=== PATIENT | male | born 1955 | race Caucasian/White ===

== ENCOUNTER 2025-02-15 20:19 | Inpatient (IN) | payer BC, MEDICARE ==
[~2025-02-15] VITALS: Ht 188 cm; Wt 82.5 kg
--- NOTE | 2025-02-15 20:38 | Physician Documentation ---
History of Present Illness ~ Chief Complaint: Chest Pain Stated Complaint: NSTEMI Time Seen by MD: 20:38 OK to notify your PCP?: Yes Source: patient, RN/MD, EMS, RN notes reviewed, EMS notes reviewed Mode of Arrival: EMS Exam Limitations: no limitations HPI BED 6 This patient is a 69-year-old male transferred via EMS from [facility] for NSTEMI. Patient initially presented to [facility] for an injury to his chest. He states that about 35-40 minutes prior to his arrival at [facility], he had been playing basketball when he was accidentally struck in the chest by another player's elbow. Patient states that after the initial injury he was having some shortness of breath, however it had resolved by the time he was seen. During ED course at [facility], patient continued to complain of severe chest pain. Labs were drawn and found that patient had a troponin of 0.26. EKG indicated LBBB otherwise normal. CT chest was negative. Patient denies any cardiac history. He denies any chest pain prior to being hit during the basketball game. Patient was given a 4000 cc bolus of heparin at 4:04 p.m. and then subsequently started on a heparin drip at a rate of 20 mL/hr. The patient was also treated with morphine and 324 ASA. Patient denies any other associated symptoms at this time. Patient denies any other alleviating or exacerbating factors. He states he is otherwise healthy, no medical problems, does not smoke/drink, and is regularly active. Medication Reconciliation Allergies: Coded Allergies: No Known Allergies (Unverified , 02/15/25) Miscellaneous Medications Home Med List (No Home Medications), (Reported) Past Medical History Past Medical History: No Pertinent History Past Surgical History: no surgical history Smoking Status: Never smoker Alcohol Use: None Drug Use: none Review of Systems All Other Systems at this time: Reviewed and Negative Cardiovascular: Reports: chest pain Physical Exam Vital Signs: RN Vital Signs have been reviewed: Yes, Temperature: 98.5, Source: Oral, Heart Rate: 82, Respiratory Rate: 14, BP: 135/86, Pulse Oximetry: 98, Weight: 82.500 Oxygen Flow Rate: 0 Physical Exam General: The patient is well developed, well nourished, nontoxic appearing and is in no acute distress. Skin: [place], warm and dry with no rashes. HEENT: Head was normocephalic and atraumatic. Eyes - pupils equal, round, reactive to light and accommodation. Extraocular movements were intact. Conjunctivae were nonicteric. Ears - bilateral tympanic membranes were normal. The mouth and oropharynx were clear with moist mucous membranes. There were no pharyngeal exudates or erythema. Neck: Supple and nontender. There was no jugular venous distention, lymphadenopathy, thyromegaly or masses. Chest: Clear to auscultation bilaterally without wheezes, rales or rhonchi. No accessory muscle use. No dullness to percussion. Heart: Rate regular and rhythmic. S1, S2. No murmurs. Palpation of the chest wall was normal. No rubs or thrills. Abdomen: Soft, nontender and nondistended. Positive bowel sounds. No guarding or rebound. No hepatosplenomegaly or palpable masses. Extremities: No cyanosis, clubbing or edema. The patient moves all extremities. Pulses were equal and symmetric. Neurologic: Cranial nerves II-XII were intact. Sensation was intact to light touch throughout. Motor strength was 5/5 in all four extremities. Deep tendon reflexes were intact in both upper and lower extremities. Psychologic: The patient was oriented to person, place and time. The patient demonstrated appropriate judgement and insight. Progress Progress Note 2045: Paged Hospitalist 2105: Discussed case with hospitalist who agrees to evaluate patient for admission. Results/Orders Reviewed/noted all lab results: Yes Results/Orders Orders - FERNANDO SARAVIA MD Monitor (02/15/25 20:39) Oxygen (02/15/25 20:39) Saline Lock (02/15/25 20:39) Page Hospitalist (02/15/25 20:46) Fill Out Med Reconciliation (02/15/25 20:46) Completed Orders - FERNANDO SARAVIA MD Cbc/Diff (02/15/25 20:39) MG (02/15/25 20:39) Pt Inr (02/15/25 20:39) PTT (02/15/25 20:39) PBNP (02/15/25 20:39) Nitroglycerin 0.2mg/Hour Patch (Nitro-Du (02/15/25 20:40) BMP (02/15/25 20:39) Hs Troponin I W Calculations (02/15/25 20:39) Cardiac Ptt (02/16/25 03:16) Vital Signs 02/15/25 02/15/25 02/15/25 20:24 21:00 21:02 Temp 98.5 Pulse 82 82 Resp 14 17 13 B/P (MAP) 135/86 145/96 (112) Pulse Ox 98 93 O2 Flow Rate 0 Laboratory Tests Test 02/15/25 20:47 White Blood Count 12.3 H Red Blood Count 5.45 Hemoglobin 15.7 Hematocrit 45.4 Mean Corpuscular Volume 83.3 Mean Corpuscular Hemoglobin 28.8 Mean Corpuscular Hemoglobin Concent 34.6 Red Cell Distribution Width 13.1 Platelet Count 197 Mean Platelet Volume 8.4 Neutrophils (%) (Auto) 90.0 H Lymphocytes (%) (Auto) 6.8 L Monocytes (%) (Auto) 3.1 Eosinophils (%) (Auto) 0 Basophils (%) (Auto) 0.1 Neutrophils # (Auto) 11.0 H Lymphocytes # (Auto) 0.8 L Monocytes # (Auto) 0.4 Eosinophils # (Auto) 0.0 Basophils # (Auto) 0.0 CBC Comment Prothrombin Time 11.9 INR International Normalized Ratio 1.2 Activated Partial Thromboplast Time 64 H Coagulation Comments Sodium Level 143 Potassium Level 4.0 Chloride Level 106 Carbon Dioxide Level 24.8 Anion Gap 12 Blood Urea Nitrogen 16 Creatinine 1.30 H Estimated GFR/1.73 m2 55 BUN/Creatinine Ratio 12.3 Glucose Level 133 H Calcium Level 8.3 L Magnesium Level 1.9 Troponin I High Sensitivity 9618 *H Pro-B-Type Natriuretic Peptide 782 H Albumin 3.8 Chemistry Comments Re-Evaluation Re-Evaluation : Re-Evaluation: Unchanged Progress Patient was seen and examined. Patient was given reassurance. Patient was transferred for non ST-elevation PR. patient was playing basketball got hit in the chest continued to have pain never seemed to recover. He received three troponins at [facility] new left bundle branch block placed on a heparin drip and transferred to our facility for further evaluation and care. Patient was considered a non STEMI after consultation with the metalizer field operation but no beds were available so the patient was transferred to our facility. Laboratory work was repeated. The patient's CBC was reassuring with a WBC of 12.3 normal hemoglobin hematocrit of 15.7 and 45.4 with 90 neutrophils. Chemistry showed dramatic elevation in troponin of 9618. Subsequent troponin was [address]. Patient's chemistry was within normal limits. Patient will be taken to the drop crew laborer in the morning. Cardiology will be consulted as well. Continuous president commercial bank interpretation shows normal sinus rhythm heart rate 80s, no ectopy, normal, my interpretation. Pulse oximetry monitor interpretation shows normal oxygenation at 98% room air, normal, my interpretation. EKG/XRAY/CT/US/VASC/MRI EKG : Additional Comment 2026: EDMD Dr. Saravia interpreted the EKG to show normal sinus rhythm at a rate of 82bpm, LBBB, QTC of 533ms, and poor R wave progression. Heart Score: Heart Score Response (Comments) Value History Moderate Suspicious [address]-Deviation 2 Age >65 2 Risk Factors No known risk factors 0 Troponin >3 x's Normal limit 2 Total 7 Medical Decision Making Additional info obtained from: old records Differential Dx:Considerations: Include: angina, aortic dissection, chest wall pain, CHF, costochondritis, esophageal reflux/spasm, myocardial infarction, pericarditis, pleuritis, pulmonary embolus, other Departure Time of Disposition: 21:06 Disposition: 09 ADMITTED INPATIENT Admitted to Inpatient Unit: yes, to hospitalist Admission Level of Care: PCU with Tele Impression: Primary Impression: NSTEMI (non-ST elevated myocardial infarction) Condition: Guarded Referrals: NO PRIMARY CARE PROVIDER (PCP) Education Educated: Patient Educated regarding: diagnosis, treatment, prognosis, need for follow up, other Critical Care Note Total Time (mins): 30 Critical Care Note The very real possibility of a deterioration of this patient's condition requi red the highest level of my preparedness for sudden, emergent intervention. I provided critical care services, which included medication orders, frequent reevaluations of the patient's condition and response to treatment, ordering and reviewing test results, and discussing the case with various consultants. Excludes time spent performing separately billable procedures. The critical care time associated with the care of the patient was 30 minutes. Signature Scribe Signature: Scribed for Fernando Saravia MD by Nica Mccauley. 02/15/25 Attestation: The note accurately reflects work and decisions made by me.Fernando Saravia MD 02/15/25 20:38 FERNANDO SARAVIA MD Feb 15, 2025 20:38
[2025-02-15 21:12] LABS: MEAN PLATELET VOLUME 8.4 FL (7.4-10.4); RED CELL DISTRIBUTION WIDTH 13.1 % (11.5-14.5)
[2025-02-15] MEDS: heparin 25,000 UNIT/250ml bag 250 ML IV PRN (21:16)
[2025-02-15 21:23] LABS: APTT 64 SECONDS (22-32); INR 1.2 INR
[2025-02-15 21:31] LABS: CREATININE 1.30 MG/DL (0.60-1.10); PRO BRAIN NATRIURETIC PEPTIDE 782 PG/ML (0-125); TOTAL CARBON DIOXIDE 24.8 MMOL/L (24-32); eCRCL 64 ML/MIN; eGFR 55 ML/MIN
[2025-02-15] MEDS ORDERED: potassium Cl 20 mEq SR tablet PO PRN ×2 (21:50)
[2025-02-15] MEDS ORDERED: magnesium Cl slow-release 64mg tablet PO PRN (21:50)
[2025-02-15] MEDS ORDERED: potassium Cl 40MEQ/1/2NS 520ml 520 ML IV PRN (21:50)
[2025-02-15] MEDS ORDERED: magnesium hydroxide 30ml (MOM) UD suspension PO PRN (21:50)
[2025-02-15] MEDS ORDERED: mag hydrox/Alum hydrox/simeth 30ml oral suspension PO PRN (21:50)
[2025-02-15] MEDS: normal saline 1000ml 1,000 ML IV SCH (21:50)
[2025-02-15] MEDS ORDERED: magnesium sulf-water 2g/50mL 50 ML IV PRN (21:50)
[2025-02-15] MEDS ORDERED: magnesium sulf-water 4G/100mL 100 ML IV PRN (21:50)
[2025-02-15] MEDS: MESSAGE TO NURSING IV ONE (22:15)
[2025-02-15] MEDS ORDERED: NO HOME MEDS (22:32)
[2025-02-15 23:20] VITALS: BP 137/91; PULSE 89; RESP 18; TEMP 97.7; O2SAT 97
[2025-02-16] VITALS (14 sets, daily range): BP systolic 95–129; BP diastolic 54–94; PULSE 58–85; RESP 14–20; TEMP 97.2–98.6; O2SAT 92–99
--- NOTE | 2025-02-16 00:04 | HISTORY AND PHYSICAL-Residence ---
History & Physical Providers to CC Resident Creating Document: JASWINDER ARCOS RES ~ History of Present Illness Primary Medical Doctor: Parish Smith MD Reason for Admit\Complaint: Chest pain History of Present Illness This 69-year-old male was transferred from [facility] on heparin drip for further management of NSTEMI. He started playing basketball after nearly 10 months and got hit by another player's elbow. Continued to play for an hour or hour and a half after the injury. Took a shower at the gym and then started feeling clammy. Also had chest pain in the mid lower chest where he was hit. States the pain is 3/10. Also complained of tingling in his in the bilateral forearms and hands but no longer has these symptoms. Had belching as well. Went to [facility] where the troponins went up from less than 0.01 two 0.26 in about 4 hours. EKG showed new onset LBBB and so Dr. Fowler - voltage regulator assembler in [facility] was consulted. Per the voltage regulator assembler, suspicion is that it is noncardiac and it is reasonable to consider a catheterization. EKG done here showed LBBB but Carlos modified Sgarbossa criteria give two points - no concordant ST-elevation of more than 1 mm (close to 1 mm in V6), no Rowe content ST-depression, excessive discordant elevation of more than or equal to 25% of S wave in leads V2 and V4. Troponins here in this hospital trended [place] 9618 [place] 70027. He does not complain any worsening chest pain in his dull achy pain at the site of injury. Denies any other complaints. Denies any dizziness, fall or losing consciousness after the injury. He received aspirin 324 mg and morphine at [facility]. States that morphine helped him with the pain in the pain gets worse with deep inspiration. Denies any nausea, vomiting. Denies any past cardiac history. States that he occasionally has difficulty drinking fluids and swallow solids 4-5 times in an year. Never got an EGD or esophageal dilatation done. Has a history of hay fever and asthma in childhood. Chest CT done at the outside hospital did not show any acute abnormalities Allergies: Coded Allergies: No Known Allergies (Unverified , 02/15/25) Home Medications Home Medications Active Reported No Home Medications (Home Med List) Each Past Medical History Past Medical History Right foot 10 done injury, kneecap injury, right wrist injury Past Surgical History Surgical History Comment Two nose surgeries Past Social History Social History Comment Denies smoking tobacco, drinking alcohol or abusing any other recreational drugs Alcohol Use: None Drug Use: None ROS ROS Constitutional: No fever, chills, dizziness, weakness, weight gain or loss Eyes: No pain, erythema, discharge, blurring of vision ENT: No sore throat, epistaxis, tinnitus Cardiovascular: Chest pain present. No chest pressure, chest discomfort, palpitations, syncope, lower extremity edema, paroxysmal nocturnal dyspnea Respiratory: No shortness of breath, cough, hemoptysis Gastrointestinal: Normal appetite. No nausea, vomiting, diarrhea, constipation, hematemesis, abdominal pain, bloating, melena or fresh blood Genitourinary: No frequency, urgency, nocturia, hematuria or dysuria Musculoskeletal: No arthralgias or myalgias Integumentary: No change in skin, hair, nails. No swelling, bruising, abrasions Neurologic: No headache, neck pain, numbness or tingling of the extremities, weakness Psychiatric: No delusions, depression, loss of interest in normal activity or change in sleep pattern, hallucinations, suicidal ideations Endocrine: No fatigue, weakness, polydipsia, polyuria, change in appetite, heat or cold intolerance, sweating, dry skin Hematological: No bleeding, petechiae, bruising Allergies: No asthma or urticaria Cardiovascular: Reports: chest pain Exam Vitals: Vital Signs Date Time Temp Pulse Resp B/P (MAP) Pulse Ox O2 Delivery O2 Flow Rate FiO2 02/15/25 22:00 82 23 140/97 (111) 98 02/15/25 20:24 98.5 0 General: Alert and oriented x4 HEENT: Normocephalic and atraumatic. Pupils equal round reactive to light and accommodation. Extraocular movements intact. Oral and nasal mucosa moist Neck: Trachea is in midline. No masses or JVD Chest: Bilateral normal breath sounds. No crackles, rhonchi or wheezes. Tenderness to pressure in mid lower chest. No open injuries or contusion Cardiovascular: Regular rate and rhythm. S1-S2 normal. No rubs or murmurs Abdomen: Soft, nontender nondistended. Bowel sounds present Extremities: No cyanosis, clubbing or edema Central Nervous System: No gross sensory or motor deficits. CN II to XII intact Skin: Warm and dry Diagnostic Data Last Recorded Lab Results: 02/15/[id number] Diagnostic Data: Laboratory Tests Test 02/15/25 20:47 Prothrombin Time 11.9 SECONDS (9.0-12.0) INR International Normalized Ratio 1.2 INR Activated Partial Thromboplast Time 64 SECONDS (22-32) H Coagulation Comments Advance Care Planning Advanced Care plannin - 30 Minutes Additional Plan NSTEMI and new onset LBBB Troponins continue to trend drop from 9618 to 20039 Continue morphine for pain Received aspirin 324 mg chew tablet at the outside hospital At the outside hospital, EKG showed new onset LBBB and so Dr. Fowler - voltage regulator assembler in [facility] was consulted. Per the voltage regulator assembler, suspicion is that it is noncardiac and it is reasonable to consider a catheterization. EKG done here showed LBBB but Carlos modified Sgarbossa criteria give two points - no concordant ST-elevation of more than 1 mm (close to 1 mm in V6), no Rowe content ST-depression, excessive discordant elevation of more than or equal to 25% of S wave in leads V2 and V4. Repeat EKG after 4 hours did not show any new changes On heparin drip. Received 4000 IV bolus of heparin at the outside hospital Did not start any beta jose daniel due to underlying LBBB. Regular rate. Hemodynamically stable Continue aspirin 81 mg p.o. daily, Lipitor 80 mg p.o. daily LDL 153. HbA1c 5.2 Pending UA and urine tox Chest CT done at the outside hospital did not show any acute abnormalities Echocardiogram ordered Consult Cardiology in a.m. NPO after midnight Elevated white count No source of infection Chest CT done at the outside hospital did not show any acute abnormalities Pending UA Started Rocephin 2 g IV daily and on normal saline at 100 cc/hour Blood cultures ordered Possible acute kidney injury Creatinine 1.3. BUN normal-16 EGFR 55 Continue IV fluids DVT prophylaxis: Heparin drip Diet: NPO after midnight Jaswinder Arcos MD Internal Medicine Resident, PGY 2 I have discussed the pt with the resident Pt has a rising troponin will continue treatment as outlined agree with the plan as documented Date of Service: Feb 16, 2025 Billing Provider: JIM BISHOP MD, MANOJNA RES Feb 16, 2025 00:04 JIM BISHOP MD Feb 16, 2025 03:25
--- NOTE | 2025-02-16 00:34 | ELECTROCARDIOGRAPH REPORT ---
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 KIMBERLY Fierro Measurements Intervals [place] Rate: 75 P: 69 AL: 183 QRS: -19 QRSD: 148 T: 75 QT: 474 QTc: 530 Interpretive Statements Sinus rhythm Left bundle branch block Electronically Signed On 02-16-2025 17:56:[address] KIMBERLY Fierro Please click the below link to view image of tracing.
[2025-02-16 01:24] LABS: MEAN PLATELET VOLUME 8.2 FL (7.4-10.4); RED CELL DISTRIBUTION WIDTH 13.1 % (11.5-14.5)
[2025-02-16 01:34] LABS: APTT 31 SECONDS (22-32); INR 1.1 INR
[2025-02-16 01:37] LABS: CHOL/HDL RATIO 3.5 (0.00-4.99); CREATININE 1.29 MG/DL (0.60-1.10); LDL CHOLESTEROL 153 MG/DL (50-100); PHOSPHORUS 3.3 MG/DL (2.3-4.5); TOTAL CARBON DIOXIDE 25.9 MMOL/L (24-32); eCRCL 65 ML/MIN; eGFR 56 ML/MIN
[2025-02-16] MEDS ORDERED: heparin 10,000 units/1 ML INJ IV PRN (02:10)
[2025-02-16] MEDS ORDERED: heparin 25,000 UNIT/250ml bag 250 ML IV PRN (02:10)
[2025-02-16 02:49] LABS: LEUKOCYTE ESTERASE ,URINE NEGATIVE (Neg); NITRITES, URINE NEGATIVE (Neg); OCCULT BLOOD,URINE TRACE-INTACT (Neg)
[2025-02-16 02:55] LABS: URINE AMPHETAMINE SCREEN NEGATIVE (Neg); URINE BARBITUATE SCREEN NEGATIVE (Neg); URINE BENZODIAZEPINES SCREEN NEGATIVE (Neg); URINE CANNABINOID SCREEN NEGATIVE (Neg); URINE COCAINE SCREEN NEGATIVE (Neg); URINE METHADONE SCREEN NEGATIVE (Neg); URINE OPIATE SCREEN POSITIVE (Neg); URINE PHENCYCLIDINE SCREEN NEGATIVE (Neg)
[2025-02-16 02:57] LABS: UA COLLECTION TYPE CLN CATCH MIDSTREAM
[2025-02-16 03:00] LABS: MUCUS STRANDS MODERATE /LPF (Neg); SQUAMOUS EPITHELIAL CELL,UR NONE SEEN /LPF (FEW)
[2025-02-16] MEDS: heparin 10,000 units/1 ML INJ IV PRN (03:21)
[2025-02-16] MEDS: CefTRIAXone 2gm/D5W 50ml BAG 50 ML IV SCH (03:22)
[2025-02-16] MEDS: MESSAGE TO NURSING IV ONE ×3 (03:36→19:12)
--- NOTE | 2025-02-16 04:43 | ELECTROCARDIOGRAPH REPORT ---
[facility] Test Date: 2025-02-15 Test Time: 20:27:29 Pat Name: REYES FELIPE Department: EMERGENCY ROOM Room: [place] [address] A Gender: M Receptionist Scheduler: : 1955 Requested By: DEPARTMENT EMERGENCY Order Number: [id number] Reading MD: Dr. Joshua Mahan Measurements Intervals [place] Rate: 82 P: 76 CO: 175 QRS: 31 QRSD: 149 T: 102 QT: 456 QTc: 533 Interpretive Statements Sinus rhythm Left bundle branch block Electronically Signed On 02-17-2025 10:24:[address] Joshua Mahan Please click the below link to view image of tracing.
--- NOTE | 2025-02-16 06:54 | RADIOLOGY REPORT ---
EXAM: XR Chest, 1 View CLINICAL INDICATION: Pain TECHNIQUE: Frontal view of the chest. COMPARISON: No relevant prior studies available. FINDINGS: LUNGS AND PLEURAL SPACES: Unremarkable. No consolidation. No pneumothorax. HEART: Unremarkable. No cardiomegaly. MEDIASTINUM: Unremarkable. Normal mediastinal contour. BONES/JOINTS: Unremarkable. No acute fracture. IMPRESSION: No acute cardiopulmonary process.
--- NOTE | 2025-02-16 08:41 | ELECTROCARDIOGRAPH REPORT ---
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 KIMBERLY Fierro Measurements Intervals [place] Rate: 73 P: 60 MI: 177 QRS: -34 QRSD: 149 T: 70 QT: 486 QTc: 536 Interpretive Statements Sinus rhythm Ventricular premature complex Left bundle branch block Electronically Signed On 02-16-2025 17:57:[address] KIMBERLY Fierro Please click the below link to view image of tracing.
[2025-02-16] MEDS: aspirin 81mg, enteric-coated 1 TAB TABLET.DR PO SCH (09:12)
[2025-02-16 09:15] LABS: OSMOLALITY 290.0 MOSM/K (280-300)
[2025-02-16] MEDS: K and/or MAG REPLACEMENT MC SCH (11:51)
[2025-02-16] MEDS: ondansetron/PF 4mg/2ml inj IV PRN (13:06)
--- NOTE | 2025-02-16 13:37 | PROGRESS NOTE- Residence ---
Progress Note - Resident Providers to CC Resident Creating Document: WELLINGTON CASTILLO, RES ~ Antibiotic Timeout Antibiotic Ordered?: Yes Subjective The patient has been evaluated at bedside. The patient reports that his chest pain improves with nitroglycerin. Also states some tenderness in the level of the chest due to previous trauma while he was playing basketball. Objective Vital Signs Date Time Temp Pulse Resp B/P (MAP) Pulse Ox O2 Delivery O2 Flow Rate FiO2 02/16/25 10:45 Room Air 02/16/25 07:00 98.6 77 15 109/71 (84) 95 2.0 Physical exam: General: Well alert, well oriented, not confused, not agitated, not in acute distress, well cooperated during the physical. HEENT: Conjunctive are pink, sclerae clear, no icterus, pupil is equal in both sides, reactive to light, no ear discharge, no pharyngeal erythema or an edema. Neck: Supple, no JVD, no lymphadenopathy and thyromegaly. Chest: Equal air entry on both lungs, no additional sounds no rhonchi no wheezing at the moment. Tenderness in midsternal area, as per patient from trauma yesterday while he was playing basketball. Cardiovascular: S1-S2 regular sinus rhythm and, regular rate, no gallops, no rubs, no murmurs Abdomen: No visible peristalsis, Bowel sounds present on auscultation, soft, nontender, no guarding, no rigidity Extremities: No obvious deformities, no pitting edema bilaterally, capillary refill intact, peripheral pulsations are intact on both sides Central Nervous System: No focal neurological deficits, no motor or sensory weakness in all 4 extremities, could move all 4 extremities, 2+ deep tendon reflexes, negative Babinski. Musculoskeletal: No joint swelling, deformities, inflammations, and no scoliosis and back tenderness Skin: Warm and dry. Result Diagram: 02/16/25 0104 02/16/25 0104 Coagulation Studies Laboratory Tests Test 02/16/25 01:04 02/16/25 09:15 Prothrombin Time 11.0 SECONDS (9.0-12.0) INR International Normalized Ratio 1.1 INR Activated Partial Thromboplast Time 31 SECONDS (22-32) APTT (Heparin Protocol) 46 SECONDS (45-60) Coagulation Comments Assessment Assessment 69-year-old male patient came to the hospital transferred from [facility] due to NSTEMI. Plan Plan NSTEMI: New onset LBBB: The patient came to the hospital with chief complaint of chest pain. Troponins continue to [place] drop [place] 9618 to 53945 Continue morphine for pain Received aspirin 324 mg chew tablet at the outside hospital At the outside hospital, EKG showed new onset LBBB and so Dr. Fowler - nuclear equipment test engineer in [facility] was consulted. Per the nuclear equipment test engineer, suspicion is that it is noncardiac and it is reasonable to consider a catheterization. EKG done here showed LBBB but Carlos modified Sgarbossa criteria give two points - no concordant ST-elevation of more than 1 mm (close to 1 mm in V6), no Rowe content ST-depression, excessive discordant elevation of more than or equal to 25% of S wave in leads V2 and V4. Repeat EKG after 4 hours did not show any new changes On heparin drip. Received 4000 IV bolus of heparin at the outside hospital Did not start any beta jose daniel due to underlying LBBB. Regular rate. Hemodynamically stable Continue aspirin 81 mg p.o. daily, Lipitor 80 mg p.o. daily LDL 153. HbA1c 5.2 Pending UA and urine tox Chest CT done at the outside hospital did not show any acute abnormalities Echocardiogram ordered Consult Cardiology in a.m. NPO after midnight. 02/16/2025: Troponin levels trending up. Last troponin levels 32512. Echocardiogram: LVEF 40-45%. Mild septal hypertrophy. Multisegmental wall motion abnormalities. RVSP 34 mmHg. Grief Counsellor: Dr. Rowe consulted who states that the patient will be transferred to clinical lab scientist this afternoon. Continue heparin drip. On aspirin 81 mg daily. Atorvastatin 80 mg daily. Nitroglycerin 0.4 mg q.5h minutes PRN sublingual. Elevated white count likely reactive: No source of infection Chest CT done at the outside hospital did not show any acute abnormalities Pending UA Started Rocephin 2 g IV daily and on normal saline at 100 cc/hour Blood cultures ordered. 02/16/2025: CRP: 0.83. Continue on empiric antibiotic ceftriaxone 1 g daily. Possible acute kidney injury Creatinine 1.3. BUN normal-16 EGFR 55 Continue IV fluids. 02/16/2025: Urine lytes ordered. Continue NS at 100 mL/hour. Code status: Full code DVT prophylaxis: Currently on heparin. Analgesia/sedation: Morphine. Line/tube: PIV GI prophylaxis: Protonix. Nutrition: NPO for coronary angiogram. PT: Ordered Prognosis: Guarded Disposition: Continue medical management. The patient will undergo coronary angiogram today. Wellington Cantrell Internal Medicine Resident [facility] Date of Service: Feb 16, 2025 Billing Provider: CORDELIA JOVEL MD Common Visit Codes: [id number] INP/OBS CARE(HIGH) WELLINGTON CASTILLO, RES Feb 16, 2025 13:37 CORDELIA JOVEL MD Feb 16, 2025 16:56
--- NOTE | 2025-02-16 15:37 | CONSULTATION REPORT ---
History of Present Illness Providers to CC CC: RUSLAN ROWE MD ~ Reason for Admit\Admit Dx: Cardiology consultation Refering MD: Parish Smith MD History of Present Illness This is a 69-year-old male who presented as a transfer for NSTEMI. He has not no past medical history does not take medications on a regular basis. He was playing basketball in [place]. He has a history of playing basketball competitively but he has not played for the past 10 months. He was hit in the chest with a forearm during the game. He was wearing padding and continued to play. Later, after the tourniquet was over he was in the shower and noticed chest pain that was worse with inspiration. Pain continued to get worse and he noted tingling in both arms and hands as well as nausea and diaphoresis. This made him present to the emergency room at [facility]. Was found to have elevated troponins and his EKG demonstrated a left bundle branch block and he was transferred for higher level of care. Initial high sensitivity troponin 9618, 23889, 30730, 57864, 03455 Echocardiogram demonstrates an LVEF of 40-45% with wall motion abnormalities. No pericardial effusion. EKG with left bundle branch block Underwent a CT without contrast of the chest at [facility] with no acute abnormalities of the chest seen Allergies: Coded Allergies: No Known Allergies (Unverified , 02/15/25) Home Medications Home Medications Active Reported No Home Medications (Home Med List) Each Past Medical History Medical History Comment No past medical history Past Surgical History Surgical History Comment Tonsillectomy as a child Past Family History Family History: FH: coronary artery bypass surgery FATHER, , Age: Unknown, Onset:77 FH: diabetes mellitus FATHER, , Age: Unknown, Onset:Unknown Past Social History Social History Comment No history of smoking. No drug or alcohol use. 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 Active in his daily life. Physical Exam Last Vital Signs Recorded: RN Vital Signs have been reviewed: Yes, Temperature: 98.6, Source: Oral, Heart Rate: 77, Respiratory Rate: 15, BP: 109/71, Pulse Oximetry: 95, Weight: 82.500 Physical Exam General: Awake, alert, oriented. No apparent distress Neck: Supple. Normal range of motion. No JVD Respiratory: Lungs are clear to auscultation bilaterally. No respiratory distress. Chest: Normal shape and size. No accessory muscle use. Cardiovascular: Regular rate and rhythm. S1-S2. No murmur, gallop, rub. Gastrointestinal: Abdomen is soft. Nontender to palpation. Bowel sounds present. Extremities: No lower extremity edema, cyanosis or clubbing. Neurologic: Alert and oriented x4. Nonfocal Psychiatric: Normal mood and affect. Skin: Normal color. Warm and dry. Review of Systems ROS Patient complains of chest pain with arm numbness and nausea as noted in HPI. Pain worse with inspiration. No shortness a breath. No palpitations. No dizziness, lightheadedness or syncope. Was asked, but otherwise denies review of systems. Results EKG EKG Left bundle branch block Echocardiogram Echocardiogram Preliminary echocardiogram with LVEF of 40-45% with wall motion abnormalities. Other Other high sensitivity troponin 9618, 79941, 16827, 72063, 81814 Total cholesterol 222, LDL 153, HDL 63, triglycerides 90 Diagram Lab Result Diagram: 02/16/2510302/16/25103 Assessment/Plan Additional Plan This is a 69-year-old male who presented with chest pain. The following is his problem list: NSTEMI high sensitivity troponin 9618, 34352, 84778, 63779, 18095 Echocardiogram with depressed LVEF at 40-45% with wall motion abnormalities present. --continues on heparin drip --continue atorvastatin 80 mg daily --aspirin 81 mg daily --start metoprolol Recommend angiogram. The risks, benefits and alternatives were reviewed in detail with the patient. He had the opportunity to ask questions and wishes to proceed. He is being scheduled for this afternoon with Dr. Prince Rowe. Leukocytosis Was started on antibiotics. No definite source of infectious process Hyperlipidemia Total cholesterol 222, HDL 63, LDL 153, triglycerides 90 --atorvastatin as above Transaminitis AST 205 and total bili 2.9 Unclear etiology. Workup per hospitalist if indicated. Discussed with Dr. Prnice Rowe who is in agreement with the above. Supervising MD Supervising Physician: BARBRA Culp NP Feb 16, 2025 15:37
[2025-02-16] MEDS ORDERED: LIDOcaine 1% (10mg/ml) 2ml vial ONE (16:43)
[2025-02-16] MEDS ORDERED: verapamil 2.5 mg/ml inj IV ONE (16:43)
[2025-02-16] MEDS ORDERED: fentaNYL/PF 50MCG/1 ML 2ML syringe ONE (16:44)
[2025-02-16] MEDS ORDERED: heparin 1,000unit/ml 10ml vial 10 ML ONE (16:44)
[2025-02-16] MEDS ORDERED: midazolam 1 mg/ML 2ml injection ONE (16:44)
[2025-02-16] MEDS ORDERED: nitroGLYCERIN 500mcg/5mL D5W 5 ML IV ONE ×2 (16:45→17:56)
[2025-02-16] MEDS ORDERED: iohexol 350 MG/ML 50ML vial IV ONE (18:01)
--- NOTE | 2025-02-16 18:31 | CARDIAC CATH REPORT ---
Cardiac Cath Report Providers to CC CC: RUSLAN LEONG MD Procedure Comments: 1. Left Heart Catheterization 2. Selective Coronary Angiography 3. Percutaneous Coronary Intervention of the Left Anterior Descending x 2 4. Right Radial Artery Access Brief History/Indications: 69yo man with no significant PMH admitted with CP, found to have NSTEMI. Techniques: After informed consent was obtained, the patient was brought to the cardiac catheterization laboratory and prepped and draped in usual sterile fashion for left heart catheterization and other procedures mentioned above. The right wrist was anesthetized with 1% Lidocaine and the right radial artery accessed via the Seldinger technique after which a 6Fr sheath was placed. Through this a TIG was used to engage the left ventricle, and the right coronary artery, and a JL 3.5 to engage the left coronary artery. See below for interventional procedure details. At the conclusion of the case the sheath was removed and hemostasis obtained with a VascBand. Findings Findings: HEMODYNAMICS: LV: 106/6 mmHg LVEDP: 17 mmHg Ao: 100/67, MAP 82 mmHg CORONARY ARTERIES: Rt Dominant LMCA: Luminal Irregularities LAD: 100% occluded after the septal branch. D1: Ostial 30% stenosis LCx: Luminal Irregularities OM1: Small OM2: Luminal Irregularities RCA: Luminal Irregularities PDA: Ostial 20% stenosis PL: Mid 20-30% stenosis PERCUTANEOUS CORONARY INTERVENTION of the LAD: An XB LAD 4.0 guide was used to engage the left coronary artery. The LAD lesion was crossed with a Choice wire. Pre-dilatation was performed with a 2.0x1mm balloon. Repeat angiography revealed inadequate pre-treatment of the lesion with no flow still. IC NTG was given with MILAD 1 flow. The distal to mid-LAD was then pre-dilated with the 2.0mm balloon. Repeat angiography revealed better pre-t reatment of the lesion. Subsequently, a 3.0x15mm balloon was used to pre-dilate the mid LAD. Subsequently, overlapping 2.5x18mm and 3.0x30mm [place] RADHA were deployed across the lesion. The lesion was not post-dilated. Repeat angiography revealed adequate stent expansion without evidence of dissection. Results Results: 1. 100% occluded mid LAD 2. PCI of the mid-LAD with overlapping 2.5x18mm and 3.0x30mm [place] RADHA 3. RRA Access, closed with VascBand RECOMMENDATIONS: 1. Cont ASA 81mg QD indefinitely 2. Cont Brilinta 90mg BID x 12 months 3. Recommend uptitration of other max-tolerated GDMT TRAVON LEONG MD Feb 16, 2025 18:31
--- NOTE | 2025-02-16 19:06 | CARDIOLOGY REPORT ---
APPROVED REPORT EXAM: Comprehensive 2D, Doppler, and color-flow Echocardiogram. Patient Location: 3012 [address] Blood Pressure: 109/71 mmHg Heart Rate: 62 bpm Rhythm: SINUS w/BBB Indications ABNORMAL EKG ELEVATED PROBNP (782) HS TROPONIN 9618, 66419, 47367, 35316 NSTEMI Access Services Assistant: none (Dave Rowe MD - consult) Previous echo: none 2D Dimensions RVDd 3.4 cm LA Diam5.2 cm IVSd 1.2 (0.7-1.1cm) LVDd 4.9 cm PWd 0.9 (0.7-1.1cm) IVSs 1.3 (0.8-1.2cm) LVDs 4.0 (2.5-4.0cm) PWs 1.2 (0.8-1.2cm) LVOT Diameter 2.00 (1.8-2.4cm) LVEF(%) 36.3 (>50%) Ao Asc Diam.2.96 cmIVC 23.46 mm FS (%) 17.5 % SV 40.2 ml CO 2.7 L/min M-Mode Dimensions Left Atrium(MM) 3.74 (2.5-4.0cm) Aortic Root 2.92 (2.2-3.7cm) Aortic Cusp Exc 2.13 (1.5-2.0cm) Biplane 2D LA Volumes LA ESV Index 23.88 mL/m2 Aortic Valve AoV Peak Jonn. 114.0 cm/s AoV VTI 22.2 cm AO Peak GR. 5.2 mmHg AO Mean GR. 3 mmHg LVOT VTI 19.78 cm LVOT Peak Jonn. 98.5 cm/s RAFA(VTI)/BSA 2.79 cm2/m2 RAFA (VTI) 2.79 cm2 Mitral Valve MV E Velocity 87.3 cm/s MV Peak Gr. 3 mmHg MV DECEL TIME 144 ms MV A Velocity 67.0 cm/s MV PHT 64 ms E/A Ratio 1.3 MVA (PHT) 3.44 cm2 MV VMax91.6 cm/s TDI Medial E' P. V 8.29 cm/s E/Medial E' 10.5 Tricuspid Valve TR P. Velocity 247 cm/s RAP ESTIMATE 10 mmHg TR Peak Gr. 24 mmHg RVSP 34 mmHg Pulmonary Vein S1 Velocity 36.5 cm/s D2 Velocity 45.7 cm/s PVa Hzndsuli06.4 cm/s PVa [id number] msec LEFT VENTRICLE Normal LV size and function. Mild septal hypertrophy. Multisegmental wall motion abnormalities. LVEF is 40-45%. RIGHT VENTRICLE RV is mildly dilated in size with normal function. RVSP is estimated at 34 mmHg. ATRIA LA size is normal. RA size is normal. AORTIC VALVE Trileaflet AV appears mildly sclerotic without stenosis or insufficiency. MITRAL VALVE Mild MV annular calcification without stenosis. Trace regurgitation. TRICUSPID VALVE TV appears structurally normal with trace regurgitation. PULMONIC VALVE Normal PV without stenosis, physiologic insufficiency. GREAT VESSELS Aortic root is normal in size. Ascending aorta is normal in size. IVC is dilated and collapses greate r than 50% with inspiration. PERICARDIUM Normal pericardium. No effusion. Other Information Study Quality: Adequate Conclusion Normal LV size and function. Mild septal hypertrophy. Multisegmental wall motion abnormalities. LVEF is 40-45%. RV is mildly dilated in size with normal function. RVSP is estimated at 34 mmHg. LA size is normal. Trileaflet AV appears mildly sclerotic without stenosis or insufficiency. Mild MV annular calcification without stenosis. Trace regurgitation. TV appears structurally normal with trace regurgitation. Normal pericardium. No effusion.
--- NOTE | 2025-02-16 19:55 | ELECTROCARDIOGRAPH REPORT ---
[facility] Test Date: 2025-02-16 Test Time: 19:54:05 Pat Name: REYES FELIPE Department: [address] Patient ID: [facility]-[id number] Room: [place] [address] A Gender: M Fruit Vendor: : [id number] Requested By: THAIS TORRES Order Number: [id number] Reading MD: Dr. KIMBERLY Fierro Measurements Intervals [place] Rate: 77 P: 78 VT: 174 QRS: -42 QRSD: 144 T: 81 QT: 448 QTc: 508 Interpretive Statements Sinus rhythm ST elevation in precordial leads , acute anterior wall injury. Ventricular premature complex Left bundle branch block Electronically Signed On 02-18-2025 16:35:[address] KIMBERLY Fierro Please click the below link to view image of tracing.
[2025-02-17 02:00] VITALS: BP 96/58; PULSE 79; RESP 18; TEMP 98.1; O2SAT 92
[2025-02-17 06:00] VITALS: BP 100/68; PULSE 86; RESP 20; TEMP 98.7; O2SAT 94
[2025-02-17 06:17] LABS: MEAN PLATELET VOLUME 8.7 FL (7.4-10.4); RED CELL DISTRIBUTION WIDTH 12.8 % (11.5-14.5)
[2025-02-17 06:29] LABS: CREATININE 1.24 MG/DL (0.60-1.10); TOTAL CARBON DIOXIDE 24.2 MMOL/L (24-32); eCRCL 67 ML/MIN; eGFR 58 ML/MIN
[2025-02-17 06:31] LABS: APTT 28 SECONDS (22-32); INR 1.1 INR
[2025-02-17 06:44] LABS: PHOSPHORUS 2.0 MG/DL (2.3-4.5)
[2025-02-17 07:15] LABS: LDL CHOLESTEROL 90 MG/DL (50-100)
[2025-02-17 07:18] LABS: CHOL/HDL RATIO 3.1 (0.00-4.99)
[2025-02-17 08:00] VITALS: RESP 20; O2SAT 94
[2025-02-17] MEDS ORDERED: ASPI-920 PO (10:24)
[2025-02-17] MEDS ORDERED: ATOR-429 PO (10:24)
[2025-02-17] MEDS ORDERED: TICA90TA PO (10:24)
[2025-02-17] MEDS ORDERED: LOP25T PO (10:24)
--- NOTE | 2025-02-17 10:49 | PROGRESS NOTE ---
Progress Note Cardiology Providers to CC ~ Subjective Subjective Patient underwent angiogram yesterday with PCI of the LAD. Chest pressure has improved. Objective Result Diagram: 02/17/25 0518 02/17/25 0518 Objective General: Awake, alert, oriented. No apparent distress Neck: Supple. Normal range of motion. No JVD Respiratory: Lungs are clear to auscultation bilaterally. No respiratory distress. Chest: Normal shape and size. No accessory muscle use. Cardiovascular: Regular rate and rhythm. S1-S2. No murmur, gallop, rub. Gastrointestinal: Abdomen is soft. Nontender to palpation. Bowel sounds present. Extremities: No lower extremity edema, cyanosis or clubbing. Right radial catheterization site with dressing clean dry and intact. CMS intact. Neurologic: Alert and oriented x4. Nonfocal Psychiatric: Normal mood and affect. Skin: Normal color. Warm and dry. Coagulation Studies Laboratory Tests Test 02/16/25 15:29 02/16/25 17:47 02/17/25 05:18 APTT (Heparin Protocol) 32 SECONDS (45-60) L Activated Clotting Time 245 SEC (101-148) H Prothrombin Time 11.5 SECONDS (9.0-12.0) INR International Normalized Ratio 1.1 INR Activated Partial Thromboplast Time 28 SECONDS (22-32) Coagulation Comments Problem\Assessment\Plan Additional Plan NSTEMI high sensitivity troponin 9618, 41262, 41654, 40458, 80802 Echocardiogram with depressed LVEF at 40-45% with wall motion abnormalities present. LHC: PCI LAD. --continue atorvastatin 80 mg daily --aspirin 81 mg daily --cont metop --Brilinta 90 mg twice daily for the next year. Diet, activity and medication education provided. Patient will follow up in the office within the next 1-2 weeks. Leukocytosis Was started on antibiotics. No definite source of infectious process Hyperlipidemia Total cholesterol 222, HDL 63, LDL 153, triglycerides 90 --atorvastatin as above Transaminitis AST 205 and total bili 2.9--02/17: continues to rise. Unclear etiology. Workup per hospitalist if indicated. Discussed with Dr. Prince Rowe who is in agreement with the above. Supervising Physician: BARBRA Culp NP Feb 17, 2025 10:49
[2025-02-17 11:00] VITALS: BP 98/67; PULSE 79; RESP 28; TEMP 99.5; O2SAT 95
--- NOTE | 2025-02-17 15:12 | RADIOLOGY REPORT ---
INDICATION: increased liver enzymes TECHNIQUE: Multiple real-time sonographic images of the abdomen were obtained. COMPARISON: None FINDINGS: The liver is homogenous in echogenicity. The liver measures 19cm. No intrahepatic biliary ductal dilatation is noted. The gallbladder wall measures 0.3 cm and is unremarkable. Gallbladder sludge.. The common duct measu res 0.4 cm and is unremarkable. No pericholecystic fluid is noted. The right kidney measures 10cm. No hydronephrosis. The pancreas is not well visualized due to obscuration from bowel gas. The visualized portions of the IVC and aorta are grossly unremarkable. IMPRESSION: Normal exam of the abdomen.
[2025-02-17] MEDS ORDERED: PANT40TA54 PO (15:56)
--- NOTE | 2025-02-17 17:24 | DISCHARGE SUMMARY-Residence ---
Discharge Summary Providers to CC Resident Creating Document: ANAHI WATSON, RES ~ Discharge Summary Admission Diagnosis: CHEST PAIN / ELEVATED TROP'S Hospital Course DATE OF ADMISSION: 02/15/2025 DATE OF DISCHARGE: February 17, 2025 Discharge Diagnosis\Comment: NSTEMI New onset LBBB Elevated white count likely reactive Acute kidney injury, likely renal tubular stasis Operations\Procedures: angiogram yesterday with PCI of the LAD. Consultants: Dr. Prince Rowe Complications: None Condition on DC: Stable New Medications: Pantoprazole Sodium (Pantoprazole Sodium) 40 Mg Tablet.dr 40 MG PO DAILY for 30 Days, #30 TAB.SR Aspirin (Aspirin Chewable) 81 Mg Tab.chew 81 MG PO DAILY for 30 Days, #30 TAB.CHEW Atorvastatin Calcium* (Lipitor*) 80 Mg Tablet 1 TAB PO DAILY for 30 Days, #30 TAB Metoprolol Tartrate* (Lopressor tablet*) 25 Mg Tablet 25 MG PO BID for 30 Days, #60 TAB Hold for SBP below 100mm Hg Hold for Heart Rate below 60. Ticagrelor (Brilinta) 90 Mg Tablet 90 MG PO BID for 30 Days, #60 TAB Discharge Summary: History of present illness: This 69-year-old male was transferred from [facility] on heparin drip for further management of NSTEMI. He started playing basketball after nearly 10 months and got hit by another player's elbow. Continued to play for an hour or hour and a half after the injury. Took a shower at the gym and then started feeling clammy. Also had chest pain in the mid lower chest where he was hit. States the pain is 3/10. Also complained of tingling in his in the bilateral forearms and hands but no longer has these symptoms. Had belching as well. Went to [facility] where the troponins went up from less than 0.01 two 0.26 in about 4 hours. EKG showed new onset LBBB and so Dr. Fowler - admissions representative in [facility] was consulted. Per the admissions representative, suspicion is that it is noncardiac and it is reasonable to consider a catheterization. EKG done here showed LBBB. He does not complain any worsening chest pain in his dull achy pain at the site of injury. Denies any other complaints. Denies any dizziness, fall or losing consciousness after the injury. He received aspirin 324 mg and morphine at [facility]. States that morphine helped him with the pain in the pain gets worse with deep inspiration. Denies any nausea, vomiting. Denies any past cardiac history. Hospital course: EKGs did not show any acute ischemic changes, however, high sensitivity troponins were 9618, 25786, 60431, 95262, 28186 respectively. Echo showed LVEF at 40-45% with wall motion abnormalities. Initially treated with heparin infusion and subsequently, patient underwent left heart catheterization with PCI to LAD. He was started with guideline directed medical therapy i.e. atorvastat in, aspirin, metoprolol, and Brilinta. Patient had leukocytosis likely reactive was initially started on IV antibiotics later discontinued. Discharge course: Patient was hemodynamically stable. Chest pain resolved, no shortness of breath. However, his liver function tests was significant for elevated AST and bilirubin. Ultrasound of abdomen performed, with no abnormalities. He was discharged with the following instructions: Please follow up with Dr. Rowe's office. You may call his office at [phone]. Take Brilinta 90 mg twice daily for the next year. Do not miss any doses. This is very important. Take aspirin 81 mg daily for life You has been started on atorvastatin 80 mg daily. We will recheck lipids when you follow up in about six weeks. Follow up with your primary care doctor in one week; keep eyes on your liver function test; repeat CBC and CMP in one week Discharge physical exam: Vital Signs Date Time Temp Pulse Resp B/P (MAP) Pulse Ox O2 Delivery O2 Flow Rate FiO2 02/17/25 11:00 99.5 79 28 98/67 (77) 95 Room Air 02/16/25 15:00 2.0 General: Awake and Alert, no acute distress. HEENT: Conjunctiva pink, Sclera clear, Mucus Membranes moist. Neck: Supple without masses and tenderness. Resp: Unlabored. Lungs clear to auscultation bilaterally. Heart: Regular Rate and rhythm, normal S1 and S2 without murmur, rub or gallop. Abdomen: Soft and non tender no organomegaly Extremities: No cyanosis,clubbing or edema. Skin: Warm and Dry. Laboratory Tests Test 02/15/25 20:47 02/15/25 23:13 02/16/25 01:04 02/16/25 02:15 White Blood Count 12.3 X10'3 14.8 X10'3 Red Blood Count 5.45 X10'6 5.70 X10'6 Hemoglobin 15.7 g/dl 16.5 g/dl Hematocrit 45.4 % 47.1 % Mean Corpuscular Volume 83.3 FL 82.6 FL Mean Corpuscular Hemoglobin 28.8 PG 28.9 PG Mean Corpuscular Hemoglobin Concent 34.6 g/dL 35.0 g/dL Red Cell Distribution Width 13.1 % 13.1 % Platelet Count 197 X10'3 196 X10'3 Mean Platelet Volume 8.4 FL 8.2 FL Neutrophils (%) (Auto) 90.0 % 84.8 % Lymphocytes (%) (Auto) 6.8 % 9.3 % Monocytes (%) (Auto) 3.1 % 5.7 % Eosinophils (%) (Auto) 0 % 0 % Basophils (%) (Auto) 0.1 % 0.2 % Neutrophils # (Auto) 11.0 X10'3 12.6 X10'3 Lymphocytes # (Auto) 0.8 X10'3 1.4 X10'3 Monocytes # (Auto) 0.4 X10'3 0.8 X10'3 Eosinophils # (Auto) 0.0 X10'3 0.0 X10'3 Basophils # (Auto) 0.0 X10'3 0.0 X10'3 CBC Comment Prothrombin Time 11.9 SECONDS 11.0 SECONDS INR International Normalized Ratio 1.2 INR 1.1 INR Activated Partial Thromboplast Time 64 SECONDS 31 SECONDS Coagulation Comments Sodium Level 143 MMOL/L 141 MMOL/L Potassium Level 4.0 MMOL/L 3.9 MMOL/L Chloride Level 106 MMOL/L 103 MMOL/L Carbon Dioxide Level 24.8 MMOL/L 25.9 MMOL/L Anion Gap 12 12 Blood Urea Nitrogen 16 MG/DL 17 MG/DL Creatinine 1.30 MG/DL 1.29 MG/DL Estimated GFR/1.73 m2 55 ML/MIN 56 ML/MIN BUN/Creatinine Ratio 12.3 13.2 Glucose Level 133 MG/DL 129 MG/DL Calcium Level 8.3 MG/DL 8.6 MG/DL Magnesium Level 1.9 MG/DL 2.1 MG/DL Troponin I High Sensitivity 9618 ng/L 80702 ng/L 45883 ng/L Pro-B-Type Natriuretic Peptide 782 PG/ML Albumin 3.8 G/DL 4.1 G/DL Chemistry Comments Hemoglobin A1c 5.2 % Phosphorus Level 3.3 MG/DL Total Bilirubin 2.9 MG/DL Aspartate Amino Transf (AST/SGOT) 205 U/L Alanine Aminotransferase (ALT/SGPT) 54 U/L Alkaline Phosphatase 80 IU/L Troponin I High Sens Percent Delta % Troponin I Hi Sens Absolute Change ng/L Total Protein 7.5 G/DL Globulin 3.4 G/DL Albumin/Globulin Ratio 1.2 Triglycerides Level 90 MG/DL Cholesterol Level 222 MG/DL LDL Cholesterol 153 MG/DL HDL Cholesterol 63 MG/DL Cholesterol/HDL Ratio 3.5 Urine Specimen Description Cln catch midstream Urine Color Yellow Urine Clarity Clear Urine pH 6.0 Urine Specific [place] >=1.030 Urine Protein Trace mg/dl Urine Glucose (UA) Negative mg/dl Urine Ketones >=80 mg/dl Urine Occult Blood Trace-intact Urine Nitrite Negative Urine Bilirubin Negative Urine Urobilinogen 0.2 E.U/dL Urine Leukocyte Esterase Negative Urine RBC 3-10 /HPF Urine WBC 0-4 /HPF Urine Squamous Epithelial Cells None seen /LPF Urine Bacteria Few /HPF Urine Mucus Moderate /LPF Volume Urine Centrifuged 10 ml Urine Comment Urine Opiates Screen Positive Urine Methadone Screen Negative Urine Fentanyl Screen Negative Urine Barbiturates Screen Negative Urine Phencyclidine Screen Negative Urine Amphetamines Screen Negative Urine Benzodiazepines Screen Negative Urine Cocaine Screen Negative Urine Cannabinoids Screen Negative Drug Screen Comment Test 02/16/25 02:48 02/16/25 02:51 02/16/25 09:15 02/16/25 15:29 Erythrocyte Sedimentation Rate 3 MM/HR APTT (Heparin Protocol) 31 SECONDS 46 SECONDS 32 SECONDS Coagulation Comments Lactic Acid Level 1.6 MMOL/L Troponin I High Sensitivity 16232 ng/L 07283 ng/L Troponin I High Sens Percent Delta % Troponin I Hi Sens Absolute Change ng/L Procalcitonin < 0.05 NG/ML < 0.05 NG/ML Osmolality 290 MOSM/K C-Reactive Protein 0.83 MG/DL Thyroid Stimulating Hormone (TSH) 0.57 ulU/ml Test 02/16/25 17:47 02/17/25 05:18 Activated Clotting Time 245 SEC White Blood Count 13.9 X10'3 Red Blood Count 4.90 X10'6 Hemoglobin 14.0 g/dl Hematocrit 40.8 % Mean Corpuscular Volume 83.2 FL Mean Corpuscular Hemoglobin 28.5 PG Mean Corpuscular Hemoglobin Concent 34.3 g/dL Red Cell Distribution Width 12.8 % Platelet Count 155 X10'3 Mean Platelet Volume 8.7 FL Neutrophils (%) (Auto) 82.0 % Lymphocytes (%) (Auto) 6.3 % Monocytes (%) (Auto) 11.5 % Eosinophils (%) (Auto) 0 % Basophils (%) (Auto) 0.2 % Neutrophils # (Auto) 11.4 X10'3 Lymphocytes # (Auto) 0.9 X10'3 Monocytes # (Auto) 1.6 X10'3 Eosinophils # (Auto) 0.0 X10'3 Basophils # (Auto) 0.0 X10'3 CBC Comment Prothrombin Time 11.5 SECONDS INR International Normalized Ratio 1.1 INR Activated Partial Thromboplast Time 28 SECONDS Coagulation Comments Sodium Level 137 MMOL/L Potassium Level 3.6 MMOL/L Chloride Level 103 MMOL/L Carbon Dioxide Level 24.2 MMOL/L Anion Gap 10 Blood Urea Nitrogen 16 MG/DL Creatinine 1.24 MG/DL Estimated GFR/1.73 m2 58 ML/MIN BUN/Creatinine Ratio 12.9 Glucose Level 117 MG/DL Calcium Level 8.0 MG/DL Phosphorus Level 2.0 MG/DL Magnesium Level 1.9 MG/DL Total Bilirubin 4.1 MG/DL Aspartate Amino Transf (AST/SGOT) 337 U/L Alanine Aminotransferase (ALT/SGPT) 71 U/L Alkaline Phosphatase 66 IU/L Total Protein 6.3 G/DL Albumin 3.2 G/DL Globulin 3.1 G/DL Albumin/Globulin Ratio 1.0 Triglycerides Level 110 MG/DL Cholesterol Level 160 MG/DL LDL Cholesterol 90 MG/DL HDL Cholesterol 52 MG/DL Cholesterol/HDL Ratio 3.1 Chemistry Comments *Problems/Diagnosis: (1) NSTEMI (non-ST elevated myocardial infarction) Status: Acute Total Time Spent on D/C: > 30 Minutes Date of Service: Feb 17, 2025 Billing Provider: CORDELIA JOVEL MD, SHAMS, RES Feb 17, 2025 17:13 CORDELIA JOVEL MD Feb 17, 2025 17:47
== END 2025-02-17 16:45 | disposition home or self-care (01) | DRG 321 ==
LOC: ER 20:20 → ED HOLD 21:59 → PCU 3S 23:08
PROVIDERS: ADMIT Internal Medicine; ATTEND Internal Medicine
PROC: 027035Z Dilation of Coronary Artery, One Artery with Two Drug-eluting Intraluminal Devices, Percutaneous Approach (ICD-10-PCS; principal; 2025-02-16)
PROC: 4A023N7 Measurement of Cardiac Sampling and Pressure, Left Heart, Percutaneous Approach (ICD-10-PCS; 2025-02-16)
PROC: B2111ZZ Fluoroscopy of Multiple Coronary Arteries using Low Osmolar Contrast (ICD-10-PCS; 2025-02-16)
DX: I21.4 Non-ST elevation (NSTEMI) myocardial infarction (principal); N17.0 Acute kidney failure with tubular necrosis; I44.7 Left bundle-branch block, unspecified; D72.829 Elevated white blood cell count, unspecified; E78.5 Hyperlipidemia, unspecified; R74.01 Elevation of levels of liver transaminase levels; Z83.3 Family history of diabetes mellitus
CPT/HCPCS: 93306; 93458; 96365; 99291; C9600; 36415; 71045; 76700; 80048; 80053; 80061; 80305; 81001; 83036; 83605; 83735; 83880; 83930; 84100; 84145; 84443; 84484; 85025; 85347; 85610; 85651; 85730; 86140; 87040; 87081; 93005; 97161; 97530; 99152; 99153; A4615; A6213; C1725; C1751; C1769; C1874; C1894; G0378; J0696; J1644; J2003; J2250; J2405; J2470; J3010; J3490; J7030; J7040; Q9967